=== PATIENT | female | born 1955 | race Caucasian/White ===

== ENCOUNTER → 2023-06-15 08:07 | Outpatient (REF) | payer OTHER, SELFPAY | LOC: HWRAD 08:07 | PROVIDERS: ATTENDING PHYSICIAN Internal Medicine | DX: K37 Unspecified appendicitis (principal) | CPT/HCPCS: 74177; Q9967 ==

== ENCOUNTER 2023-07-23 06:48 | Day surgery (SDC) | payer OTHER, SELFPAY ==
[2023-07-16 09:22] VITALS: BMI 25.3
[2023-07-16 10:14] LABS: Hematocrit 37.3 % (37.0-47.0); Hemoglobin 12.9 g/dL (12.0-16.0); Mean Corp Hgb Conc. 34.6 g/dL (33.0-37.0); Mean Corpuscular Hgb 30.2 pg (27.0-31.0); Mean Corpuscular Volume 87.4 fL (81.0-99.0); Mean Platelet Volume 11.6 fL (7.4-10.4); Platelet Count 219 10^3/uL (130-400); Red Blood Cell Count 4.27 10^6/uL (4.20-5.40); Red Cell Dist. Width 12.9 % (11.5-14.5); White Blood Cell Count 5.8 10^3/uL (4.8-10.8)
[2023-07-16 10:35] LABS: Blood Urea Nitrogen 20 mg/dl (7-17); Carbon Dioxide 21 mmol/L (22-30); Chloride 112 mmol/L (98-107); Estimated Creatinine Clearance 90 ml/min; Glucose 97 mg/dl (70-99); Potassium 4.4 mmol/L (3.5-5.1); Sodium 140 mmol/L (135-145); eGFR > 60.00
[2023-07-23] VITALS (8 sets, daily range): BP systolic 124–146; BP diastolic 78–97; BMI 25.3
[2023-07-23] MEDS: NORMOSOL-R 1000 IV (11:14)
[2023-07-23] MEDS: TYLENOL 1000 MG PO (11:15)
--- NOTE | 2023-07-23 11:20 | W.SUR.PREOP ---
Pre-Operative Surgical Note
-
I have examined this patient prior to the performance of the scheduled procedure.
The patient's condition is unchanged from the time of the current History and
Physical and the patient is able to undergo the scheduled procedure.
--- NOTE | 2023-07-23 12:00 | SUR.OPER ---
PATIENT SUPINE, LEFT ARM TUCKED AT SIDE WITH FOAM PROTECTING FOREARM
--- NOTE | 2023-07-23 13:48 | W.IMMPOSTOP ---
Surgical Immed Post Op Note
-
Primary Surgeon: Venus
Assisting Surgeon: None
Pre-op Diagnosis: History of appendicitis
Post-op Diagnosis: History of appendicitis
Procedure Performed: Laparoscopic appendectomy
Anesthesia Type: GETA +0.25% Marcaine
Specimen / Cultures: Appendix
Estimated Blood Loss: 8 mL
Complications: None immediate
Operative Findings: Base of appendix and mid appendix normal-appearing. Distal appendix/tip with chronic inflammatory adhesions reflective of history of perforated appendicitis with abscess and consistent with recent CT imaging. Appendix divided
flush with cecum utilizing BHANU 30 mm stapler. Mesoappendix taken with harmonic scalpel. Terminal ileum/distal ileum mobilized from inflammatory adhesions in the right lower quadrant and adjacent to appendix tip. Tip of appendix also adjacent to
region of cecum/ascending colon but cleanly dissected free from it.
Patient's updated postop and waiting area.
== END 2023-07-23 14:51 | disposition home or self-care (01) ==
LOC: SDS 06:48
PROVIDERS: ATTENDING PHYSICIAN Surgery; FAMILY PHYSICIAN Internal Medicine
DX: K35.80 Unspecified acute appendicitis (principal); Z87.19 Personal history of other diseases of the digestive system
CPT/HCPCS: 44970; 88304; 36415; 80048; 85027; 93005; J1335

== ENCOUNTER → 2024-03-07 09:26 | Outpatient (REF) | payer OTHER, SELFPAY | LOC: RAD 09:26 | PROVIDERS: ATTENDING PHYSICIAN Internal Medicine | DX: I77.810 Thoracic aortic ectasia (principal) | CPT/HCPCS: 71260; Q9967 ==

== ENCOUNTER → 2024-04-11 07:25 | Outpatient (REF) | payer OTHER, SELFPAY | LOC: WDC 07:25 | PROVIDERS: ATTENDING PHYSICIAN Obstetrics & Gynecology Gynecology; FAMILY PHYSICIAN Internal Medicine | DX: Z12.31 Encounter for screening mammogram for malignant neoplasm of breast (principal) | CPT/HCPCS: 77063; 77067 ==